=== PATIENT | female | born 1995 | race Asian ===

== ENCOUNTER → 2021-10-20 | Outpatient (CLI) | payer SELFPAY ==
[2021-10-20 19:28] LABS: Bilirubin, Urine Neg (Neg); Blood, Urine Neg (Neg); Glucose Qualitative, Urine Neg (Neg); Ketones, Urine Neg (Neg); Leukocyte Esterase, Urine Neg (Neg); Nitrite, Urine Neg (Neg); Protein, Urine Neg (Neg); Urobilinogen, Urine NORM (Normal)
[2021-10-20 19:41] LABS: Appearance, Urine Clear (Clear); Color, Urine Pale Yellow (P-Yellow)
[2021-10-21 10:22] LABS: Candida species (DNA Probe) Negative (NEGATIVE); G. vaginalis (DNA Probe) Negative (NEGATIVE); T. vaginalis (DNA Probe) Negative (NEGATIVE)
== END | disposition home or self-care (01) ==
LOC: LAB SHORT 17:54
PROVIDERS: Student in an Organized Health Care Education/Training Program
DX: Z12.4 Encounter for screening for malignant neoplasm of cervix (principal); Z11.3 Encounter for screening for infections with a predominantly sexual mode of transmission; N89.8 Other specified noninflammatory disorders of vagina
CPT/HCPCS: 81003; 87480; 87510; 87660

== ENCOUNTER 2022-03-17 12:52 | Emergency (ER) | payer OTHER ==
[~2022-03-17] VITALS: Ht 144.8 cm; Wt 81.7 kg
[~2022-03-17 12:52] MED LIST: AMOCLA875 PO
[2022-03-17] MEDS ORDERED: SULTRIDS PO (15:41)
== END 2022-03-17 16:02 | disposition home or self-care (01) ==
LOC: ER 12:52
DX: N76.4 Abscess of vulva (principal); L73.9 Follicular disorder, unspecified; Z79.899 Other long term (current) drug therapy
CPT/HCPCS: 99282

== ENCOUNTER 2022-04-26 23:30 | Emergency (ER) | payer OTHER ==
[~2022-04-26] VITALS: Ht 144.8 cm; Wt 61.2 kg
[~2022-04-26 23:30] MED LIST changes: +SULTRIDS PO
== END 2022-04-27 01:20 | disposition home or self-care (01) ==
LOC: ER 23:30
DX: S63.267A Dislocation of metacarpophalangeal joint of left little finger, initial encounter (principal); W18.30XA Fall on same level, unspecified, initial encounter; Y92.002 Bathroom of unspecified non-institutional (private) residence as the place of occurrence of the external cause
CPT/HCPCS: 26770; 73130; 81025; 96372; 99283-25; A9270; J3010

== ENCOUNTER 2023-05-28 06:52 | Emergency (ER) | payer OTHER ==
[~2023-05-28] VITALS: Ht 144.8 cm; Wt 45.4 kg
[2023-05-28 07:23] VITALS: BP 116/69
== END 2023-05-28 09:14 | disposition home or self-care (01) ==
LOC: ER 06:52
DX: S40.011A Contusion of right shoulder, initial encounter (principal); S80.01XA Contusion of right knee, initial encounter; R07.9 Chest pain, unspecified; R51.9 Headache, unspecified; V89.2XXA Person injured in unspecified motor-vehicle accident, traffic, initial encounter
CPT/HCPCS: 71046; 73562-RT; 99284-25

== ENCOUNTER → 2023-12-06 | Outpatient (CLI) | payer OTHER | END | disposition home or self-care (01) | LOC: LAB 16:39 → LAB SHORT 16:39 | DX: Z34.01 Encounter for supervision of normal first pregnancy, first trimester (principal); Z3A.01 Less than 8 weeks gestation of pregnancy | CPT/HCPCS: 87086 ==